=== PATIENT | female | born 2000 | race Caucasian/White ===

== ENCOUNTER 2023-02-11 18:31 | Emergency (ER) | payer BC ==
[~2023-02-11] VITALS: Ht 180.3 cm; Wt 140.6 kg
[~2023-02-11 18:31] MED LIST: CEPH250SUA PO; MULTCH
[2023-02-11 19:17] LABS: BASOPHILS ABSOLUTE AUTO 0.04 K/mm3 (0.00-0.23); BASOPHILS PERCENT AUTO 0 % (0-2); EOSINOPHILS ABSOLUTE AUTO 0.06 K/mm3 (0.00-0.68); EOSINOPHILS PERCENT AUTO 0 % (0-6); Hematocrit 44.1 % (33.0-51.0); Hemoglobin 14.8 g/dL (11.5-16.0); IMMATURE GRAN ABSOLUTE AUTO 0.06 K/mm3 (0.00-0.10); IMMATURE GRAN PERCENT AUTO 0 % (0-1); LYMPHOCYTES ABSOLUTE AUTO 3.15 K/mm3 (0.84-5.20); LYMPHOCYTES PERCENT AUTO 15 % (21-46); MONOCYTES ABSOLUTE AUTO 1.31 K/mm3 (0.16-1.47); MONOCYTES PERCENT AUTO 6 % (4-13); Mean Corpuscular HGB Conc 33.6 g/dL (31.5-36.5); Mean Corpuscular Volume 87 fL (80-100); Mean Platelet Volume 10.5 fL (9.1-12.4); NEUTROPHILS ABSOLUTE AUTO 16.26 K/mm3 (1.96-9.15); NEUTROPHILS PERCENT AUTO 78 % (41-73); Platelet Count 277 K/mm3 (150-400); RDW Coefficient Variation 13.8 % (11.7-14.2); RDW Standard Deviation 43.5 fL (35.1-46.3); White Blood Cell Count 20.88 K/mm3 (4.00-11.30)
[2023-02-11 19:38] LABS: Albumin, Blood 4.5 g/dL (3.4-5.0); Bilirubin, Total 0.7 mg/dL (0.1-1.0); Bun/Creatinine Ratio 11.2 (12.0-20.0); Calcium, Blood 9.7 mg/dL (8.5-10.1); Creatinine, Blood 0.71 mg/dL (0.40-1.00); Globulin, Blood 4.7 g/dL (2.2-4.0); Potassium, Blood 3.8 mmol/L (3.5-5.5); Total Protein, Blood 9.2 g/dL (6.4-8.2)
[2023-02-11 20:18] VITALS: BP 144/82
[2023-02-11] MEDS ORDERED: Penicillin V P500 MG PO (21:39)
== END 2023-02-11 23:12 | disposition home or self-care (01) ==
LOC: ER 18:31
PROVIDERS: Physician Assistant
DX: J02.0 Streptococcal pharyngitis (principal); A41.9 Sepsis, unspecified organism; Z20.822 Contact with and (suspected) exposure to COVID-19
CPT/HCPCS: 71046; 80053; 85025; 87430; 96361; 96374; 99285-25; A9270; J1885; J7030